=== PATIENT | male | born 1955 | race Caucasian/White ===

== ENCOUNTER 2022-01-07 05:21 | Inpatient (IN) ==
[2022-01-07 05:39] VITALS: BMI 22.9
--- NOTE | 2022-01-07 05:43 | DR.FEVERAD ---
HPI <GARCÍA LEDESMA - Last Filed: 01/07/22 08:19> Time seen Time Seen by Provider: 01/07/22 05:42 PCP Primary Care Physician: Neo TARANGO Comment HPI Comment: PATIENT IS 66YR OLD OLD MALE IN ER WITH GENERALIZED WEAKNESS, NAUSEA WITHOUT VOMITING, DIARRHEA AND FEVER SINCE YESTERDAY. PATIENT IS A DIABETIC WITH HISTORY OF HTN, GALL BLADDER DISEASE AND A FIB AND VERTIGO. PATIENT SAID HE HAS POOR ORAL INTAKE. Complaints/Symptoms Chief Complaint Doctor Comments: FEVER, NAUSEA WITHOUT VOMITING AND GENERALIZED WEAKNESS SINCE LAST NIGHT. Chief Complaint:: Weakness, fever, severe nausea without vomiting since yesterday morning. Patient reports sched for Cholecystectomy next week, but not sure if these symptoms are related Self Treatment fo Chief Complaint: OTC nausea medication COVID-19 Coronavirus risk:travel/contact w/high risk person: No Has patient experienced Coronavirus symptoms: No Nurses notes reviewed Nurses Notes Review: Yes Source History Provided: Patient and Significant Other Mode of Arrival Mode of Arrival: Ambulatory Timing Onset of Chief Complaint: 01/06/22 PMH <GARCÍA LEDESMA - Last Filed: 01/07/22 08:19> PMH Past Medical History: Yes Past Medical History: Hypertension Past Medical History Comment: Afib, Vertigo, and gallbladder Past Surgical History: Yes Surgical History: Other Past Surgical History Comment: repair a deviated nasal septum Family History History of Family Medical Conditions: Yes Family Medical History: Diabetes Mellitus, [place], Coronary Artery Disease and Hypertension Social History Does patient currently use any type of tobacco product: No Have you used tobacco products in the last 12 months: No Type of Tobacco Use: None Does any household member use tobacco: No Alcohol Use: Rarely Do you use any recreational Drugs:: No Lives With: Spouse Lives Where: Home Travel Risk Coronavirus risk:travel/contact w/high risk person: No Has patient experienced Coronavirus symptoms: No Infectious screening In the last 2 months have you had wt loss of >10#?: NO Have you had fever, night sweats or hemotysis?: No Have you traveled outside the country in the last 6 months?: No Isolation: Standard ROS <GARCÍA LEDESMA - Last Filed: 01/07/22 08:19> Review of Systems Constitutional: See HPI, Fever, Malaise, Weakness and Fatigue Eyes: No Symptoms Reported and See HPI ENTM: No Symptoms Reported, See HPI and Nose Congestion; negative Nose Discharge Respiratoy: See HPI and Short of Breath Cardiovascular: No Symptoms Reported and See HPI; negative Chest Pain Gastrointestinal/Abdominal: Abdominal Pain, Diarrhea and Nausea; negative Vomiting Genitourinary: No Symptoms Reported and See HPI; negative Dysuria Neurological: See HPI and Weakness; negative Headache Musculoskeletal: See HPI and Muscle Pain Integumentary: See HPI and Dryness Hematologic/Lymphatic: No Symptoms Reported, See HPI and Easy Bruising Endocrine: No Symptoms Reported and See HPI; negative Increased Thirst or Increased Urine Psychiatric: No Symptoms Reported All Other Systems: Reviewed and Negative PE <GARCÍA LEDESMA - Last Filed: 01/07/22 08:19> Vital Signs Vitals: Temperature 99.0 F Pulse Rate [Left] 79 Pulse Rate 91 Respiratory Rate 22 Blood Pressure [Left Arm] 112/58 Blood Pressure 113/57 O2 Sat by Pulse Oximetry 98 General Limitations: No Limitations General Appearance: Alert and In No Apparent Distress Head Head Exam: Normal Inspection Eyes Eye exam: Normal Appearance; negative Scleral Icterus or Conjunctival Injection ENT ENT Exam: Normal Oropharynx; negative TM's Normal Bilaterally External Ear Exam: Normal External Inspection; negative Mastoid Tenderness TM/Canal Exam: Bilateral: Normal Nose Exam: Normal Nose Exam Mouth Exam: Normal Inspection Teeth Exam: Dental Caries; negative Dental Tenderness # or Gingival Swelling Throat Exam: Tonsillar Erythema; negative Tonsillomegaly or Tonsillar Exudate Neck Neck Exam: Normal Inspection and Trachea Midline; negative Tenderness Respiratory Respiratory Exam: Normal Lung Sounds Bilat; negative Accessory Muscle Use, Chest Wall Tenderness or Respiratory Distress Respiratory Exam: Bilateral: Clear to Auscultation Cardiovascular Cardiovascular Exam: Regular Rate, Normal Rhythm and Normal Heart Sounds; negative Systolic Murmur or Diastolic Murmur Abdominal Exam Abdominal Exam: Normal Inspection, Normal Bowel Sounds and Tenderness Abdominal Tenderness: LUQ and Epigastrium Extremities Extremities Exam: Normal Inspection and Normal Capillary Refill Back Back Exam: Normal Inspection Neurologic Neurological Exam: Alert and Oriented X3 Psychiatric Psychiatric Exam: Normal Affect and Normal Mood Skin Skin Exam: Dry <Aki Hassan - Last Filed: 01/07/22 09:44> Vital Signs Vitals: Temperature 99.0 F Pulse Rate [Left] 79 Pulse Rate 91 Respiratory Rate 22 Blood Pressure [Left Arm] 112/58 Blood Pressure 113/57 O2 Sat by Pulse Oximetry 98 MDM <GARCÍA LEDESMA - Last Filed: 01/07/22 08:19> Differential Diagnosis Differential Diagnosis: Influenza, Pneumonia, Pyelonephritis, UTI and Viral syndrome COURSE <GARCÍA LEDESMA - Last Filed: 01/07/22 08:19> Treatment Treatment: SEE ORDERS DONE WHILE PATIENT WAS IN ER. Education/Counseling Education/Counseling: Patient and Family Educated On: Diagnosis and Needs for Follow Up <Aki Sonya - Last Filed: 01/07/22 09:44> Treatment Treatment: SEE ORDERS DONE WHILE PATIENT WAS IN ER. 0900 - pt was admitted to Dr Larson, by Dr Ledesma. Dr Torres was notified of consult by nursing staff. Baseline orders written. ROR <GARCÍA LEDESMA - Last Filed: 01/07/22 08:19> Labs Reviewed Laboratory Results Reviewed?: Yes Result Diagrams: 01/07/22 05:52 01/07/22 05:52 Laboratory: WBC 11.6 X10^3/uL (3.6-10.0) H 01/07/22 05:52 RBC 4.32 X10^6/uL (4.7-6.0) L 01/07/22 05:52 Hgb 13.7 g/dL (13.5-18.0) 01/07/22 05:52 Hct 37.9 % (42.0-54.0) L 01/07/22 05:52 MCV 87.7 fL (80.0-100.0) 01/07/22 05:52 MCH 31.8 pg (27.0-34.0) 01/07/22 05:52 MCHC 36.2 g/dL (33.0-35.0) H 01/07/22 05:52 RDW 14.0 % (11.6-16.5) 01/07/22 05:52 Plt Count 142 X10^3/uL (150.0-450.0) L 01/07/22 05:52 Plt Count Comment Decreased (ADEQUATE) 01/07/22 05:52 MPV 8.0 fL (7.4-11.0) 01/07/22 05:52 Neut % (Auto) 92.4 % (42.0-75.0) H 01/07/22 05:52 Lymph % (Auto) 2.4 % (21.0-51.0) L 01/07/22 05:52 Centre % (Auto) 4.0 % (0.0-13.0) 01/07/22 05:52 Eos % (Auto) 0.0 % (0.9-2.9) L 01/07/22 05:52 Baso % (Auto) 1.2 % (0.2-1.0) H 01/07/22 05:52 Neut # (Auto) 10.8 x10^3/uL (2.2-4.8) H 01/07/22 05:52 Lymph # (Auto) 0.3 X10^3/uL (1.3-2.9) L 01/07/22 05:52 Centre # (Auto) 0.5 x10^3/uL (0.3-0.8) 01/07/22 05:52 Eos # (Auto) 0.0 x10^3/uL (0.0-0.2) 01/07/22 05:52 Baso # (Auto) 0.1 X10^3/uL (0.0-0.1) 01/07/22 05:52 Absolute Nucleated RBC 0.1 /100WBC 01/07/22 05:52 Total Counted 100 01/07/22 05:52 Neutrophils % (Manual) 93 % (39-76) H 01/07/22 05:52 Band Neutrophils % 3 % (0-10) 01/07/22 05:52 Lymphocytes % (Manual) 1 % (13-43) L 01/07/22 05:52 Monocytes % (Manual) 3 % (4-9) L 01/07/22 05:52 Plt Morphology Comment Normal (NORMAL) 01/07/22 05:52 RBC Morphology Normal (NORMAL) 01/07/22 05:52 Sodium 135 mmol/L (136-145) L 01/07/22 05:52 Corrected Sodium 136 mmol/L (136-145) 01/07/22 05:52 Potassium 3.9 mmol/L (3.5-5.1) 01/07/22 05:52 Chloride 102 mmol/L (98-107) 01/07/22 05:52 Carbon Dioxide 25.8 mmol/L (21-32) 01/07/22 05:52 BUN 18 mg/dL (7-18) 01/07/22 05:52 Creatinine 1.07 mg/dL (0.70-1.30) 01/07/22 05:52 Est GFR (MDRD) Af Amer > 60 (>60) 01/07/22 05:52 Est GFR (MDRD) Non-Af > 60 (>60) 01/07/22 05:52 Glucose 139 mg/dL (65-99) H 01/07/22 05:52 Calcium 7.9 mg/dL (8.5-10.1) L 01/07/22 05:52 Corrected Calcium TNP 01/07/22 05:52 Total Bilirubin 1.50 mg/dL (0.2-1.0) H 01/07/22 05:52 AST 13 Units/L (15-37) L 01/07/22 05:52 ALT 14 Units/L (12-78) 01/07/22 05:52 Alkaline Phosphatase 81 Units/L (46-116) 01/07/22 05:52 Total Protein 6.6 g/dL (6.4-8.2) 01/07/22 05:52 Albumin 3.4 g/dL (3.4-5.0) 01/07/22 05:52 Globulin 3.2 g/dL (2.5-4.5) 01/07/22 05:52 Albumin/Globulin Ratio 1.1 Ratio (1.1-2.1) 01/07/22 05:52 Amylase 28 Units/L (25-115) 01/07/22 05:52 Lipase 40 Units/L (73-393) L 01/07/22 05:52 SARS-CoV-2 (PCR) Negative (NEGATIVE) 01/07/22 06:03 Influenza Type A (PCR) Negative (NEGATIVE) 01/07/22 06:03 Influenza Type B (PCR) Negative (NEGATIVE) 01/07/22 06:03 RSV (PCR) Negative (NEGATIVE) 01/07/22 06:03 <Aki Hassan - Last Filed: 01/07/22 09:44> Labs Reviewed Laboratory: WBC 11.6 X10^3/uL (3.6-10.0) H 01/07/22 05:52 RBC 4.32 X10^6/uL (4.7-6.0) L 01/07/22 05:52 Hgb 13.7 g/dL (13.5-18.0) 01/07/22 05:52 Hct 37.9 % (42.0-54.0) L 01/07/22 05:52 MCV 87.7 fL (80.0-100.0) 01/07/22 05:52 MCH 31.8 pg (27.0-34.0) 01/07/22 05:52 MCHC 36.2 g/dL (33.0-35.0) H 01/07/22 05:52 RDW 14.0 % (11.6-16.5) 01/07/22 05:52 Plt Count 142 X10^3/uL (150.0-450.0) L 01/07/22 05:52 Plt Count Comment Decreased (ADEQUATE) 01/07/22 05:52 MPV 8.0 fL (7.4-11.0) 01/07/22 05:52 Neut % (Auto) 92.4 % (42.0-75.0) H 01/07/22 05:52 Lymph % (Auto) 2.4 % (21.0-51.0) L 01/07/22 05:52 Centre % (Auto) 4.0 % (0.0-13.0) 01/07/22 05:52 Eos % (Auto) 0.0 % (0.9-2.9) L 01/07/22 05:52 Baso % (Auto) 1.2 % (0.2-1.0) H 01/07/22 05:52 Neut # (Auto) 10.8 x10^3/uL (2.2-4.8) H 01/07/22 05:52 Lymph # (Auto) 0.3 X10^3/uL (1.3-2.9) L 01/07/22 05:52 Centre # (Auto) 0.5 x10^3/uL (0.3-0.8) 01/07/22 05:52 Eos # (Auto) 0.0 x10^3/uL (0.0-0.2) 01/07/22 05:52 Baso # (Auto) 0.1 X10^3/uL (0.0-0.1) 01/07/22 05:52 Absolute Nucleated RBC 0.1 /100WBC 01/07/22 05:52 Total Counted 100 01/07/22 05:52 Neutrophils % (Manual) 93 % (39-76) H 01/07/22 05:52 Band Neutrophils % 3 % (0-10) 01/07/22 05:52 Lymphocytes % (Manual) 1 % (13-43) L 01/07/22 05:52 Monocytes % (Manual) 3 % (4-9) L 01/07/22 05:52 Plt Morphology Comment Normal (NORMAL) 01/07/22 05:52 RBC Morphology Normal (NORMAL) 01/07/22 05:52 Sodium 135 mmol/L (136-145) L 01/07/22 05:52 Corrected Sodium 136 mmol/L (136-145) 01/07/22 05:52 Potassium 3.9 mmol/L (3.5-5.1) 01/07/22 05:52 Chloride 102 mmol/L (98-107) 01/07/22 05:52 Carbon Dioxide 25.8 mmol/L (21-32) 01/07/22 05:52 BUN 18 mg/dL (7-18) 01/07/22 05:52 Creatinine 1.07 mg/dL (0.70-1.30) 01/07/22 05:52 Est GFR (MDRD) Af Amer > 60 (>60) 01/07/22 05:52 Est GFR (MDRD) Non-Af > 60 (>60) 01/07/22 05:52 Glucose 139 mg/dL (65-99) H 01/07/22 05:52 Calcium 7.9 mg/dL (8.5-10.1) L 01/07/22 05:52 Corrected Calcium TNP 01/07/22 05:52 Total Bilirubin 1.50 mg/dL (0.2-1.0) H 01/07/22 05:52 AST 13 Units/L (15-37) L 01/07/22 05:52 ALT 14 Units/L (12-78) 01/07/22 05:52 Alkaline Phosphatase 81 Units/L (46-116) 01/07/22 05:52 Total Protein 6.6 g/dL (6.4-8.2) 01/07/22 05:52 Albumin 3.4 g/dL (3.4-5.0) 01/07/22 05:52 Globulin 3.2 g/dL (2.5-4.5) 01/07/22 05:52 Albumin/Globulin Ratio 1.1 Ratio (1.1-2.1) 01/07/22 05:52 Amylase 28 Units/L (25-115) 01/07/22 05:52 Lipase 40 Units/L (73-393) L 01/07/22 05:52 SARS-CoV-2 (PCR) Negative (NEGATIVE) 01/07/22 06:03 Influenza Type A (PCR) Negative (NEGATIVE) 01/07/22 06:03 Influenza Type B (PCR) Negative (NEGATIVE) 01/07/22 06:03 RSV (PCR) Negative (NEGATIVE) 01/07/22 06:03 Opioid <GARCÍA LEDESMA - Last Filed: 01/07/22 08:19> Opioid Risk Tool Age (Jimmy box if 16-45): No History of Preadolescent Sexual Abuse: No Total: 0 Total Score Risk Category: Low Risk Copyright: Brad PATRICIA predicting aberrant behaviors <Aki Hassan - Last Filed: 01/07/22 09:44> Opioid Risk Tool Total: 0 Total Score Risk Category: Low Risk Discharge Plan Diagnosis Discharge Problem: Generalized weakness, Nausea, Fever, Gall bladder disease, Acute dehydration Discharge Plan Patient Disposition: 09 ADMITTED INPATIENT Condition: Stable Orders to Discharge Patient Discharge Orders: Transfer (Routine); Ordered 01/07/22 Ordered By: Aki Hassan
[2022-01-07 06:04] LABS: BASOPHILS # (AUTO) 0.1 X10^3/uL (0.0-0.1); BASOPHILS % (AUTO) 1.2 % (0.2-1.0); HEMATOCRIT 37.9 % (42.0-54.0); HEMOGLOBIN 13.7 g/dL (13.5-18.0); LYMPHOCYTES # (AUTO) 0.3 X10^3/uL (1.3-2.9); LYMPHOCYTES % (AUTO) 2.4 % (21.0-51.0); MEAN CORPUSCULAR HEMOGLOBIN 31.8 pg (27.0-34.0); MEAN CORPUSCULAR HGB CONC 36.2 g/dL (33.0-35.0); MEAN CORPUSCULAR VOLUME 87.7 fL (80.0-100.0); MONOCYTES # (AUTO) 0.5 x10^3/uL (0.3-0.8); NEUTROPHILS # (AUTO) 10.8 x10^3/uL (2.2-4.8); NEUTROPHILS % (AUTO) 92.4 % (42.0-75.0); RED BLOOD COUNT 4.32 X10^6/uL (4.7-6.0); WHITE BLOOD COUNT 11.6 X10^3/uL (3.6-10.0)
[2022-01-07 06:24] LABS: ALANINE AMINOTRANSFERASE 14 Units/L (12-78); ALBUMIN 3.4 g/dL (3.4-5.0); ALKALINE PHOSPHATASE 81 Units/L (46-116); AMYLASE 28 Units/L (25-115); ASPARTATE AMINO TRANSFERASE 13 Units/L (15-37); BLOOD UREA NITROGEN 18 mg/dL (7-18); CALCIUM 7.9 mg/dL (8.5-10.1); CARBON DIOXIDE 25.8 mmol/L (21-32); CHLORIDE 102 mmol/L (98-107); COR NA(FOR HYPERGLY) 136 mmol/L (136-145); CREATININE 1.07 mg/dL (0.70-1.30); LIPASE 40 Units/L (73-393); SODIUM 135 mmol/L (136-145); TOTAL PROTEIN 6.6 g/dL (6.4-8.2); eGFR NON BLACK RACES > 60 (>60)
[2022-01-07 06:25] LABS: BAND NEUTROPHILS % 3 % (0-10); PLATELET MORPHOLOGY COMMENT NORMAL (NORMAL)
[2022-01-07] MEDS ORDERED: ZOFRAN TAB 4 MG PO ONE (06:49)
[2022-01-07] MEDS ORDERED: ZOFRAN TAB 4 MG ONE (06:49)
[2022-01-07] MEDS ORDERED: NS 1,000 ML IV 1,000 ML IV ONE (07:45)
[2022-01-07] MEDS ORDERED: NS 1,000 ML IV 1,000 ML ONE (07:47)
[2022-01-07] MEDS ORDERED: ZOFRAN INJ 4 MG VIAL IVP PRN (10:04)
[2022-01-07] MEDS ORDERED: MORPHINE SULFATE INJ 4 MG IVP PRN (10:04)
[2022-01-07] MEDS: D5 1/2 NS 1,000 ML 1,000 ML IV SCH ×2 (10:40→18:42)
[2022-01-07] MEDS: LANOXIN PO SCH (11:15)
[2022-01-07] MEDS: ZITHROMAX INJ 500 MG VIAL 500 MG in NS 250 ML IV 250 ML IV SCH (18:41)
[2022-01-07] MEDS: FLAGYL IV PREMIX 500 MG BAG 500 MG/100 ML BAG IV SCH (21:43)
[2022-01-07] MEDS: LOPRESSOR TAB 50 MG PO SCH (21:45)
[2022-01-08] MEDS: D5 1/2 NS 1,000 ML 1,000 ML IV SCH ×4 (05:27→18:40)
[2022-01-08] MEDS: FLAGYL IV PREMIX 500 MG BAG 500 MG/100 ML BAG IV SCH ×3 (05:29→21:01)
[2022-01-08 06:20] LABS: BASOPHILS % (AUTO) 0.2 % (0.2-1.0); EOSINOPHILS % (AUTO) 0.1 % (0.9-2.9); HEMATOCRIT 32.3 % (42.0-54.0); LYMPHOCYTES # (AUTO) 0.4 X10^3/uL (1.3-2.9); LYMPHOCYTES % (AUTO) 5.4 % (21.0-51.0); MEAN CORPUSCULAR HEMOGLOBIN 32.3 pg (27.0-34.0); MEAN CORPUSCULAR VOLUME 87.4 fL (80.0-100.0); MEAN PLATELET VOLUME 8.2 fL (7.4-11.0); MONOCYTES # (AUTO) 0.5 x10^3/uL (0.3-0.8); MONOCYTES % (AUTO) 6.2 % (0.0-13.0); NEUTROPHILS # (AUTO) 6.5 x10^3/uL (2.2-4.8); NEUTROPHILS % (AUTO) 88.1 % (42.0-75.0); WHITE BLOOD COUNT 7.4 X10^3/uL (3.6-10.0)
[2022-01-08 06:33] LABS: ALANINE AMINOTRANSFERASE 11 Units/L (12-78); ALBUMIN 2.8 g/dL (3.4-5.0); ALKALINE PHOSPHATASE 64 Units/L (46-116); ASPARTATE AMINO TRANSFERASE 10 Units/L (15-37); BLOOD UREA NITROGEN 15 mg/dL (7-18); CALCIUM 7.3 mg/dL (8.5-10.1); CARBON DIOXIDE 25.7 mmol/L (21-32); CHLORIDE 102 mmol/L (98-107); COR CA(FOR HYPOALB) 8.3 mg/dL (8.5-10.1); COR NA(FOR HYPERGLY) 134 mmol/L (136-145); CREATININE 1.07 mg/dL (0.70-1.30); SODIUM 133 mmol/L (136-145); TOTAL PROTEIN 5.6 g/dL (6.4-8.2); eGFR NON BLACK RACES > 60 (>60)
[2022-01-08] MEDS: PROTONIX INJ 40 MG VIAL IVP SCH (08:14)
[2022-01-08] MEDS: LANOXIN PO SCH (08:14)
[2022-01-08] MEDS: LOPRESSOR TAB 50 MG PO SCH ×2 (08:14→20:52)
[2022-01-08] MEDS: ZITHROMAX INJ 500 MG VIAL 500 MG in NS 250 ML IV 250 ML IV SCH (08:15)
--- NOTE | 2022-01-08 14:44 | DR.PROGNOT ---
Hospital Progress Notes - Progress Note for Day of: Progress Note Date: 01/08/22 - Chief Complaint Chief Complaint: feeling better but still having frequent loose bowel movements . afebrile . LFT and renal tests are normal now . - Past Medical Family Social History Past Med/Fam/Surg Hx: No changes since H&P Allergies: Allergies Sulfa (Sulfonamide Antibiotics) [SULFA] Allergy (Verified 01/07/22 08:34) - Review Of Systems ROS: No change since H&P - Vital Signs Vital Signs: Temperature 98.0 F Pulse Rate [Left] 66 Pulse Rate 71 Respiratory Rate 18 Blood Pressure [Left Arm] 101/58 Blood Pressure 113/57 O2 Sat by Pulse Oximetry 99 - Physical Exam Oriented: Normal Eyes: Normal Ear: Normal Nose: Normal Respiratory: Normal Cardiovascular: Normal : Normal GI:Auscultation: Decreased GI:Palpation: Normal GI: Tenderness: Diffuse (soft abdomen with mild epigastric and RUUQ tenderness ) Speech Pattern: Clear, Appropriate - Laboratory and Diagnostics Result Diagrams: 01/08/22 05:58 01/08/22 05:58 Labs: 01/07/22 16:20 Stool Stool Culture - Preliminary 01/07/22 16:20 Stool - Final Laboratory WBC 7.4 X10^3/uL (3.6-10.0) 01/08/22 05:58 RBC 3.70 X10^6/uL (4.7-6.0) L 01/08/22 05:58 Hgb 12.0 g/dL (13.5-18.0) L 01/08/22 05:58 Hct 32.3 % (42.0-54.0) L 01/08/22 05:58 MCV 87.4 fL (80.0-100.0) 01/08/22 05:58 MCH 32.3 pg (27.0-34.0) 01/08/22 05:58 MCHC 37.0 g/dL (33.0-35.0) H 01/08/22 05:58 RDW 14.0 % (11.6-16.5) 01/08/22 05:58 Plt Count 117 X10^3/uL (150.0-450.0) L 01/08/22 05:58 Plt Count Comment Decreased (ADEQUATE) 01/07/22 05:52 MPV 8.2 fL (7.4-11.0) 01/08/22 05:58 Neut % (Auto) 88.1 % (42.0-75.0) H 01/08/22 05:58 Lymph % (Auto) 5.4 % (21.0-51.0) L 01/08/22 05:58 Swain % (Auto) 6.2 % (0.0-13.0) 01/08/22 05:58 Eos % (Auto) 0.1 % (0.9-2.9) L 01/08/22 05:58 Baso % (Auto) 0.2 % (0.2-1.0) 01/08/22 05:58 Neut # (Auto) 6.5 x10^3/uL (2.2-4.8) H 01/08/22 05:58 Lymph # (Auto) 0.4 X10^3/uL (1.3-2.9) L 01/08/22 05:58 Swain # (Auto) 0.5 x10^3/uL (0.3-0.8) 01/08/22 05:58 Eos # (Auto) 0.0 x10^3/uL (0.0-0.2) 01/08/22 05:58 Baso # (Auto) 0.0 X10^3/uL (0.0-0.1) 01/08/22 05:58 Absolute Nucleated RBC 0.0 /100WBC 01/08/22 05:58 Total Counted 100 01/07/22 05:52 Neutrophils % (Manual) 93 % (39-76) H 01/07/22 05:52 Band Neutrophils % 3 % (0-10) 01/07/22 05:52 Lymphocytes % (Manual) 1 % (13-43) L 01/07/22 05:52 Monocytes % (Manual) 3 % (4-9) L 01/07/22 05:52 Plt Morphology Comment Normal (NORMAL) 01/07/22 05:52 RBC Morphology Normal (NORMAL) 01/07/22 05:52 Sodium 133 mmol/L (136-145) L 01/08/22 05:58 Corrected Sodium 134 mmol/L (136-145) L 01/08/22 05:58 Potassium 3.4 mmol/L (3.5-5.1) L 01/08/22 05:58 Chloride 102 mmol/L (98-107) 01/08/22 05:58 Carbon Dioxide 25.7 mmol/L (21-32) 01/08/22 05:58 BUN 15 mg/dL (7-18) 01/08/22 05:58 Creatinine 1.07 mg/dL (0.70-1.30) 01/08/22 05:58 Est GFR (MDRD) Af Amer > 60 (>60) 01/08/22 05:58 Est GFR (MDRD) Non-Af > 60 (>60) 01/08/22 05:58 Glucose 132 mg/dL (65-99) H 01/08/22 05:58 Calcium 7.3 mg/dL (8.5-10.1) L 01/08/22 05:58 Corrected Calcium 8.3 mg/dL (8.5-10.1) L 01/08/22 05:58 Total Bilirubin 0.80 mg/dL (0.2-1.0) 01/08/22 05:58 AST 10 Units/L (15-37) L 01/08/22 05:58 ALT 11 Units/L (12-78) L 01/08/22 05:58 Alkaline Phosphatase 64 Units/L (46-116) 01/08/22 05:58 Total Protein 5.6 g/dL (6.4-8.2) L 01/08/22 05:58 Albumin 2.8 g/dL (3.4-5.0) L 01/08/22 05:58 Globulin 2.8 g/dL (2.5-4.5) 01/08/22 05:58 Albumin/Globulin Ratio 1.0 Ratio (1.1-2.1) L 01/08/22 05:58 Amylase 28 Units/L (25-115) 01/07/22 05:52 Lipase 40 Units/L (73-393) L 01/07/22 05:52 Stl C. diff Tox B Gene Negative (NEGATIVE) 01/07/22 16:20 Stl C. diff [id number] Presumptive negative (NEGATIVE) 01/07/22 16:20 SARS-CoV-2 (PCR) Negative (NEGATIVE) 01/07/22 06:03 Influenza Type A (PCR) Negative (NEGATIVE) 01/07/22 06:03 Influenza Type B (PCR) Negative (NEGATIVE) 01/07/22 06:03 RSV (PCR) Negative (NEGATIVE) 01/07/22 06:03 - Assessment and Plan 1: subsiding colitis . recurrent calculus cholecystitis . for lap abhishek in am .. - Problem Patient Problems: Patient Problems Generalized weakness (Acute) R53.1 Nausea (Acute) R11.0 Fever (Acute) R50.9 Gall bladder disease (Acute) K82.9 Acute dehydration (Acute) E86.0
[2022-01-09] MEDS: D5 1/2 NS 1,000 ML 1,000 ML IV SCH ×3 (03:28→23:07)
[2022-01-09] MEDS: FLAGYL IV PREMIX 500 MG BAG 500 MG/100 ML BAG IV SCH ×3 (05:58→21:13)
[2022-01-09 06:19] LABS: BASOPHILS % (AUTO) 0.5 % (0.2-1.0); EOSINOPHILS % (AUTO) 1.1 % (0.9-2.9); HEMATOCRIT 35.7 % (42.0-54.0); HEMOGLOBIN 12.7 g/dL (13.5-18.0); LYMPHOCYTES # (AUTO) 0.8 X10^3/uL (1.3-2.9); LYMPHOCYTES % (AUTO) 17.2 % (21.0-51.0); MEAN CORPUSCULAR HEMOGLOBIN 31.3 pg (27.0-34.0); MEAN CORPUSCULAR HGB CONC 35.7 g/dL (33.0-35.0); MEAN CORPUSCULAR VOLUME 87.7 fL (80.0-100.0); MEAN PLATELET VOLUME 8.7 fL (7.4-11.0); MONOCYTES # (AUTO) 0.4 x10^3/uL (0.3-0.8); MONOCYTES % (AUTO) 8.8 % (0.0-13.0); NEUTROPHILS # (AUTO) 3.2 x10^3/uL (2.2-4.8); NEUTROPHILS % (AUTO) 72.4 % (42.0-75.0); RED BLOOD COUNT 4.07 X10^6/uL (4.7-6.0); RED CELL DISTRIBUTION WIDTH 14.2 % (11.6-16.5); WHITE BLOOD COUNT 4.5 X10^3/uL (3.6-10.0)
[2022-01-09 06:36] LABS: ALANINE AMINOTRANSFERASE 18 Units/L (12-78); ALKALINE PHOSPHATASE 67 Units/L (46-116); ASPARTATE AMINO TRANSFERASE 15 Units/L (15-37); BLOOD UREA NITROGEN 8 mg/dL (7-18); CALCIUM 7.6 mg/dL (8.5-10.1); CARBON DIOXIDE 28.6 mmol/L (21-32); CHLORIDE 106 mmol/L (98-107); COR CA(FOR HYPOALB) 8.4 mg/dL (8.5-10.1); CREATININE 0.98 mg/dL (0.70-1.30); MAGNESIUM 1.9 mg/dL (1.7-2.9); SODIUM 140 mmol/L (136-145); TOTAL PROTEIN 6.3 g/dL (6.4-8.2); eGFR NON BLACK RACES > 60 (>60)
[2022-01-09] MEDS: LANOXIN PO SCH (08:49)
[2022-01-09] MEDS: LOPRESSOR TAB 50 MG PO SCH ×2 (08:50→21:17)
[2022-01-09] MEDS: ZITHROMAX INJ 500 MG VIAL 500 MG in NS 250 ML IV 250 ML IV SCH (08:51)
[2022-01-09] MEDS: PROTONIX INJ 40 MG VIAL IVP SCH (08:51)
[2022-01-09] MEDS ORDERED: PHENERGAN INJ 25 MG IM PRN (11:56)
[2022-01-09] MEDS ORDERED: BARHEMSYS INJ IVP PRN (11:56)
[2022-01-09] MEDS ORDERED: BENADRYL INJ 50 MG VIAL IVP PRN (11:56)
[2022-01-09] MEDS ORDERED: DILAUDID INJ IVP PRN (11:56)
[2022-01-09] MEDS ORDERED: ZOFRAN INJ 4 MG VIAL IVP PRN (11:56)
[2022-01-09] MEDS ORDERED: REGLAN INJ 10 MG VIAL IVP PRN (11:56)
[2022-01-09] MEDS ORDERED: PRECEDEX INJ VIAL IVP ONE (12:29)
[2022-01-09] MEDS ORDERED: NS 1,000 ML IV 1,000 ML ONE ×3 (12:36→13:16)
[2022-01-09] MEDS ORDERED: NS 100 ML IV 100 ML ONE (12:36)
[2022-01-09] MEDS ORDERED: ANCEF VIAL 1 GRAM ONE (12:36)
[2022-01-09] MEDS ORDERED: DIPRIVAN VIAL 20 ML ONE (12:42)
[2022-01-09] MEDS ORDERED: FENTANYL VIAL INJ 100 mcg ONE (12:42)
[2022-01-09] MEDS ORDERED: ZOFRAN INJ 4 MG VIAL ONE (12:42)
[2022-01-09] MEDS ORDERED: DECADRON INJ ONE (12:42)
[2022-01-09] MEDS ORDERED: PEPCID 20 MG VIAL ONE (12:42)
[2022-01-09] MEDS ORDERED: QUELICIN (OR ANECTINE) ONE (12:42)
[2022-01-09] MEDS ORDERED: ZEMURON 100 MG VIAL ONE (12:42)
[2022-01-09] MEDS ORDERED: BENADRYL INJ 50 MG VIAL ONE (12:42)
[2022-01-09] MEDS ORDERED: ULTANE GAS IN ONE (13:02)
[2022-01-09] MEDS ORDERED: BACTROBAN TOPICAL OINT ONE (13:35)
[2022-01-09] MEDS ORDERED: BRIDION ONE (13:59)
[2022-01-09] MEDS ORDERED: LEVAQUIN PREMIX IV 500 MG 500 MG/100 ML BAG IV ONE ×3 (14:08→14:34)
[2022-01-09] MEDS ORDERED: POTASSIUM CHL 60 MEQ/NS 0.45% 500 ML IV PRN (17:40)
[2022-01-09] MEDS ORDERED: POTASSIUM CHLORIDE LIQ 20 MEQ UDC PO PRN (17:40)
[2022-01-09] MEDS ORDERED: KLOR-CON PO PRN (17:40)
[2022-01-09] MEDS ORDERED: MICRO K EXTEN CAP 10 MEQ PO PRN (17:40)
[2022-01-09] MEDS ORDERED: POTASSIUM CHL 40 MEQ/NS 0.45% 500 ML IV PRN (17:40)
[2022-01-09] MEDS ORDERED: K-DUR TAB 20 MEQ PO PRN (17:40)
[2022-01-09] MEDS ORDERED: K-RIDER 10 MEQ/NS 100 ML 10 MEQ/100 ML BAG IV ONE (17:53)
[2022-01-09] MEDS: K-RIDER 10 MEQ/NS 100 ML 10 MEQ/100 ML BAG IV PRN ×3 (17:57→23:45)
[2022-01-09] MEDS: DILAUDID INJ IVP PRN ×2 (18:20→22:36)
[2022-01-10] MEDS: K-RIDER 10 MEQ/NS 100 ML 10 MEQ/100 ML BAG IV PRN (00:55)
[2022-01-10] MEDS: FLAGYL IV PREMIX 500 MG BAG 500 MG/100 ML BAG IV SCH (05:05)
[2022-01-10] MEDS: D5 1/2 NS 1,000 ML 1,000 ML IV SCH (06:14)
[2022-01-10 06:22] LABS: BASOPHILS % (AUTO) 0.2 % (0.2-1.0); HEMOGLOBIN 12.1 g/dL (13.5-18.0); LYMPHOCYTES # (AUTO) 0.4 X10^3/uL (1.3-2.9); MEAN CORPUSCULAR HEMOGLOBIN 31.9 pg (27.0-34.0); MEAN CORPUSCULAR HGB CONC 36.7 g/dL (33.0-35.0); MEAN CORPUSCULAR VOLUME 87.1 fL (80.0-100.0); MEAN PLATELET VOLUME 8.4 fL (7.4-11.0); MONOCYTES # (AUTO) 0.3 x10^3/uL (0.3-0.8); MONOCYTES % (AUTO) 5.5 % (0.0-13.0); NEUTROPHILS # (AUTO) 5.3 x10^3/uL (2.2-4.8); NEUTROPHILS % (AUTO) 87.3 % (42.0-75.0); RED BLOOD COUNT 3.79 X10^6/uL (4.7-6.0); RED CELL DISTRIBUTION WIDTH 13.5 % (11.6-16.5)
[2022-01-10 06:35] LABS: ALANINE AMINOTRANSFERASE 19 Units/L (12-78); ALBUMIN 2.8 g/dL (3.4-5.0); ALKALINE PHOSPHATASE 59 Units/L (46-116); ASPARTATE AMINO TRANSFERASE 17 Units/L (15-37); BLOOD UREA NITROGEN 7 mg/dL (7-18); CALCIUM 7.6 mg/dL (8.5-10.1); CARBON DIOXIDE 25.1 mmol/L (21-32); CHLORIDE 108 mmol/L (98-107); COR CA(FOR HYPOALB) 8.6 mg/dL (8.5-10.1); COR NA(FOR HYPERGLY) 141 mmol/L (136-145); SODIUM 140 mmol/L (136-145); TOTAL PROTEIN 5.7 g/dL (6.4-8.2); eGFR NON BLACK RACES > 60 (>60)
[2022-01-10] MEDS: LOPRESSOR TAB 50 MG PO SCH (08:41)
[2022-01-10] MEDS: PROTONIX INJ 40 MG VIAL IVP SCH (08:41)
[2022-01-10 09:53] VITALS: BP 127/61
[2022-01-10] MEDS: LANOXIN PO SCH (10:34)
== END 2022-01-10 11:09 | disposition home or self-care (01) | DRG 445 ==
LOC: MED/SURG 05:21 → ER 05:21 → OBSVTOIN 09:12 → MED/SURG 09:29
PROVIDERS: ADMIT Obstetrics & Gynecology Obstetrics; ATTEND Obstetrics & Gynecology Obstetrics
DX: R50.9 Fever, unspecified; R63.4 Abnormal weight loss; R19.7 Diarrhea, unspecified; I10 Essential (primary) hypertension; E11.65 Type 2 diabetes mellitus with hyperglycemia; A04.5 Campylobacter enteritis; R53.1 Weakness; Z20.822 Contact with and (suspected) exposure to COVID-19; R11.0 Nausea; E86.0 Dehydration; E87.6 Hypokalemia; I48.91 Unspecified atrial fibrillation; K82.8 Other specified diseases of gallbladder; K80.12 Calculus of gallbladder with acute and chronic cholecystitis without obstruction; I25.10 Atherosclerotic heart disease of native coronary artery without angina pectoris; R42 Dizziness and giddiness